=== PATIENT | female | born 1935 | race Caucasian/White ===

== ENCOUNTER 2016-11-16 08:20 | Emergency (ER) | payer MEDICARE ==
[2016-11-16] MEDS ORDERED: ATROPINE SULFATE 0.1 MG/ML SYRINGE ONE (08:21)
[2016-11-16] MEDS ORDERED: EPINEPHRINE ONE (08:21)
[2016-11-16] MEDS ORDERED: SODIUM CHLORIDE 0.9% 500 ML ONE ×2 (08:32→09:33)
[2016-11-16] MEDS ORDERED: DILTIAZEM HCL 5 MG/ML 5ML VIAL IV ONE (08:33)
[2016-11-16 08:43] LABS: BASO # 0.1 K/mm3 (0.0-0.2); BASO % 0.8 % (0.2-1.0); EOS # 0.2 (0.0-0.5); EOS % 1.6 % (0.9-2.9); HEMATOCRIT 42.9 % (37.0-47.0); HEMOGLOBIN 13.8 gm/l (12.0-16.0); IMM NEUT% 0.3 % (0-1); LYMPH # 2.6 (1.0-4.8); LYMPH % 21.2 % (15-45); MEAN CELL VOLUME 89.4 fl (81.0-99.0); MEAN CORPUSCULAR HEMOGLOBIN 28.8 pg (27.0-31.0); MEAN CORPUSCULAR HGB CONC 32.2 g/dl (33.0-37.0); MEAN PLATELET VOLUME 10.1 fl (7.4-10.4); MONO # 1.3 (0.0-0.8); MONO % 10.6 % (4-12); NEUT % 65.5 % (43-75); PLATELET COUNT 347 K/mm3 (130-400); RED CELL DISTRIBUTION WIDTH 12.5 % (11.5-14.5)
[2016-11-16 08:57] LABS: ALB/GLOB RATIO 1.3 (>1.0); ALBUMIN 3.9 gm/dL (3.5-5.7)
[2016-11-16 09:03] LABS: TROPONIN I 0.09 ng/ml (0.0-0.06)
[2016-11-16 09:05] LABS: CKMB ISOENZYME 3.4 ng/ml (0.6-6.3)
[2016-11-16] MEDS ORDERED: PROPOFOL 20 ML IV ONE (09:34)
[2016-11-16] MEDS ORDERED: SODIUM CHLORIDE 0.9% 250 ML IV ONE (10:27)
[2016-11-16] MEDS ORDERED: SODIUM CHLORIDE 0.9% 1,000 ML ONE (10:54)
[2016-11-16] MEDS ORDERED: EPINEPHRINE IV SCH (11:15)
[2016-11-16] MEDS ORDERED: D5W IV SCH (11:15)
[2016-11-16] MEDS ORDERED: AMIODARONE IV ONE (11:16)
--- NOTE | 2016-11-16 12:11 | RAD ---
CHEST-AP BEDSIDE COMPARISON: Chest 2 views, 07/19/2016 HISTORY: Rapid heart rate. FINDINGS: Views: Frontal chest. Lungs: Clear. Heart and vessels: Atherosclerosis of the aorta. No enlargement. Trachea and bronchi: Normal Mediastinum and arnaldo: Normal Costophrenic sulci: Normal Chest wall and bones: There are defibrillator paddles. Upper abdomen: Normal. IMPRESSION: There are defibrillator paddles. No pulmonary edema or vascular congestion.
== END 2016-11-16 13:49 | disposition short-term general hospital (02) ==
LOC: ED 08:20
DX: I97.121 Postprocedural cardiac arrest following other surgery (principal); I97.791 Other intraoperative cardiac functional disturbances during other surgery; I48.91 Unspecified atrial fibrillation; I10 Essential (primary) hypertension; Y65.8 Other specified misadventures during surgical and medical care; Y71.1 Therapeutic (nonsurgical) and rehabilitative cardiovascular devices associated with adverse incidents
CPT/HCPCS: 85025; 82550; 82553; 80053; 84484; 71010; 96375 ×2; 99285; 92960 ×2; 96361 ×2; 96365; 99152 ×2; 99291; J0461; J7050; J7040 ×2; J7030; J0171 ×2

== ENCOUNTER 2016-12-16 03:28 | Emergency (ER) | payer MEDICARE ==
[2016-12-16] MEDS ORDERED: DILTIAZEM HCL/NORMAL SALINE 100 ML IV ONE (03:47)
[2016-12-16] MEDS ORDERED: SODIUM CHLORIDE 0.9% 500 ML ONE (03:47)
[2016-12-16] MEDS ORDERED: DILTIAZEM HCL 5 MG/ML 5ML VIAL IV ONE (03:48)
[2016-12-16 03:57] LABS: BASO # 0.1 K/mm3 (0.0-0.2); BASO % 0.9 % (0.2-1.0); EOS # 0.2 (0.0-0.5); EOS % 1.7 % (0.9-2.9); HEMATOCRIT 39.8 % (37.0-47.0); IMM NEUT% 0.2 % (0-1); LYMPH # 2.5 (1.0-4.8); LYMPH % 28.6 % (15-45); MEAN CELL VOLUME 89.2 fl (81.0-99.0); MEAN CORPUSCULAR HEMOGLOBIN 29.1 pg (27.0-31.0); MEAN CORPUSCULAR HGB CONC 32.7 g/dl (33.0-37.0); MEAN PLATELET VOLUME 10.1 fl (7.4-10.4); MONO % 11.6 % (4-12); PLATELET COUNT 297 K/mm3 (130-400); RED CELL DISTRIBUTION WIDTH 12.7 % (11.5-14.5)
[2016-12-16 04:11] LABS: ALB/GLOB RATIO 1.3 (>1.0); CALCIUM 9.5 mg/dL (8.6-10.3); MAGNESIUM 2.1 mg/dL (1.9-2.7)
[2016-12-16 04:12] LABS: TROPONIN I 0.26 ng/ml (0.0-0.06)
[2016-12-16 04:16] LABS: CKMB ISOENZYME 1.8 ng/ml (0.6-6.3)
[2016-12-16 04:20] LABS: THYROID STIMULATING HORMONE 1.81 uIU/ml (0.34-5.60)
--- NOTE | 2016-12-16 06:43 | RAD ---
CHEST-AP BEDSIDE HISTORY: Prior ablation on 12/14/2016, now in atrial fibrillation. COMPARISONS: 11/16/2016. FINDINGS: An AP upright view of the chest was performed demonstrating a dual-lead pacing device. The heart size appears to be stable. There is no gross consolidation, effusion or pneumothorax visualized. The hilar and mediastinal structures are intact. IMPRESSION: 1. Interval placement of a dual-lead pacing device. 2. An otherwise negative portable chest.
[2016-12-16 08:39] LABS: CKMB ISOENZYME 1.7 ng/ml (0.6-6.3)
[2016-12-16 08:41] LABS: TROPONIN I 0.21 ng/ml (0.0-0.06)
== END 2016-12-16 09:07 | disposition home or self-care (01) ==
LOC: ED 03:28
DX: I48.91 Unspecified atrial fibrillation (principal); I10 Essential (primary) hypertension; K21.9 Gastro-esophageal reflux disease without esophagitis; Z79.01 Long term (current) use of anticoagulants; Z95.0 Presence of cardiac pacemaker
CPT/HCPCS: 83880; 85025; 82553 ×2; 80053; 83735; 84443; 84484 ×2; 71010; 96375; 99285; 96365; 99284; J7040

== ENCOUNTER 2016-12-17 21:26 | Emergency (ER) | payer MEDICARE ==
[2016-12-17] MEDS ORDERED: LACTATED RINGERS 1,000 ML ONE ×2 (22:22→22:30)
[2016-12-17 22:26] LABS: ABSOLUTE NEUTROPHIL COUNT 5.6 K/mm3 (1.8-7.7); BASO # 0.1 K/mm3 (0.0-0.2); EOS # 0.1 (0.0-0.5); EOS % 1.5 % (0.9-2.9); HEMOGLOBIN 12.6 gm/l (12.0-16.0); IMM NEUT% 0.3 % (0-1); LYMPH # 2.2 (1.0-4.8); LYMPH % 23.9 % (15-45); MEAN CORPUSCULAR HEMOGLOBIN 28.8 pg (27.0-31.0); MEAN CORPUSCULAR HGB CONC 32.3 g/dl (33.0-37.0); MEAN PLATELET VOLUME 10.5 fl (7.4-10.4); MONO # 1.1 (0.0-0.8); NEUT % 61.3 % (43-75); PLATELET COUNT 309 K/mm3 (130-400); RED CELL DISTRIBUTION WIDTH 12.6 % (11.5-14.5)
[2016-12-17 22:30] LABS: ALB/GLOB RATIO 1.3 (>1.0); CALCIUM 9.4 mg/dL (8.6-10.3); MAGNESIUM 2.1 mg/dL (1.9-2.7)
[2016-12-18 00:21] LABS: PH,URINE 6.5 (5.0-8.0); URINE BILIRUBIN NEGATIVE (NEGATIVE); URINE BLOOD NEGATIVE (NEGATIVE); URINE GLUCOSE (UA) NEGATIVE (NEGATIVE); URINE LEUKOCYTE ESTERASE NEGATIVE (NEGATIVE); URINE NITRITE NEGATIVE (NEGATIVE); URINE PROTEIN NEGATIVE (NEGATIVE); URINE UROBILINOGEN NORMAL (0-1 mg/dl)
[2016-12-18 00:22] LABS: URINE APPEARANCE CLEAR; URINE COLOR YELLOW
--- NOTE | 2016-12-18 07:58 | RAD ---
CHEST 2 VIEWS HISTORY: Chest pressure and palpitations. Frontal and lateral chest radiographs dated 12/17/2016. COMPARISON: 12/16/2016 FINDINGS: LUNG VOLUMES: Hyperinflation. FOCAL AIRSPACE OPACITY: No gross airspace consolidation. PLEURAL EFFUSION: None. CARDIOMEDIASTINAL SILHOUETTE: Nonenlarged. Prominent hiatal hernia. Dual-lead pacer identified. Aortic arch calcification. PNEUMOTHORAX: None identified. OSSEOUS STRUCTURES: Thoracic kyphosis with upper disc degeneration. Interval removal of external pacing leads. IMPRESSION: No acute cardiopulmonary process noted. Hyperinflation compatible with obstructive pulmonary disease. Dual lead pacer in place. Evidence of aortic atherosclerotic disease and large hiatal hernia.
== END 2016-12-17 23:55 | disposition home or self-care (01) ==
LOC: ED 21:26
DX: R00.2 Palpitations (principal); I10 Essential (primary) hypertension; K21.9 Gastro-esophageal reflux disease without esophagitis; Z95.0 Presence of cardiac pacemaker
CPT/HCPCS: 85025; 80053; 83735; 81003; 84484; 71020; 99284 ×2; 96360; 93005; J7120 ×2